=== PATIENT | female | born 1965 | race American Indian/Alaskan Native ===

== ENCOUNTER 2016-12-23 11:42 | Inpatient (IN) | payer MEDICARE, MEDICAID ==
[2016-12-23 11:55] VITALS: BMI 27.1
[2016-12-23] MEDS ORDERED: Sodium Chloride 0.9% 1,000 ML IV STA (12:45)
--- NOTE | 2016-12-23 12:53 | ED PDOC ---
HPI: General Adult Time Seen by Provider: 12/23/16 12:25 Chief Complaint (Nursing): Abnormal Skin Integrity Chief Complaint (Provider): Abscess History Per: Patient History/Exam Limitations: no limitations Onset/Duration Of Symptoms: Days (x 1 week) Current Symptoms Are (Timing): Still Present Additional Complaint(s): Raven Galloway is a 51-year-old female with a past medical history of HIV and diabetes, who presents to the emergency department with complaints of an abscess with associated pain, headache, and fatigue, onset 1 week ago. The abscess originally was located on the right buttock region, and began spreading. Patient admits to scratching the area, which is now leaking. She visited her doctor in [place] yesterday, and states that a CT scan was recommended. Patient took Alleve yesterday for pain, with minimal relief, and denies taking medications for pain relief today. Patient denies fever, chills, nausea, vomiting. LMP was 8 months ago. Plastic Surgeon: Dr. Baljinder Daniels MD Customer Success Associate: Dr. Moira Davis MD Past Medical History Reviewed: Historical Data, Nursing Documentation, Vital Signs Vital Signs: Last Vital Signs Temp 98.7 F 12/24/16 13:26 Pulse 84 12/24/16 13:26 Resp 20 12/24/16 13:26 BP 115/73 12/24/16 13:26 Pulse Ox 98 12/24/16 13:26 - Medical History PMH: Diabetes, HIV - Family History Family History: States: Unknown Family Hx - Home Medications Home Medications: Ambulatory Orders Medication Instructions Recorded Atorvastatin [Lipitor] 20 mg PO HS 12/23/16 Cholecalciferol (Vitamin D3) 2,000 unit PO DAILY 12/23/16 [Vitamin D3] DULoxetine [Cymbalta] 60 mg PO DAILY 12/23/16 Emtricita/rilpivir/tenofovir 1 tab PO HS 12/23/16 [Complera 200 mg-25 mg-300 mg] Escitalopram [Lexapro] 20 mg PO DAILY 12/23/16 Famotidine [Pepcid] 40 mg PO DAILY 12/23/16 Ferrous Sulfate [Feosol] 325 mg PO DAILY 12/23/16 Fluconazole [Diflucan] 150 mg PO DAILY 12/23/16 Insulin Glargine, Recombina 10 unit SC HS 12/23/16 [Lantus] MetFORMIN [glucoPHAGE] 1,000 mg PO BID 12/23/16 Mv,Min10/Folic Acid/D3/Ala/Lut 1 tab PO DAILY 12/23/16 [Strovite One Caplet] oxyCODONE [oxyCODONE Immediate 30 mg PO Q6H PRN 12/23/16 Release Tab] valACYclovir [Valtrex] 1 gm PO DAILY 12/23/16 - Allergies Allergies/Adverse Reactions: Allergies Allergy/AdvReac Type Severity Reaction Status Date / Time No Known Allergies Allergy Verified 12/23/16 11:58 Review of Systems ROS Statement: Except As Marked, All Systems Reviewed And Found Negative Constitutional: Positive for: Other (Fatigue). Negative for: Fever, Chills Gastrointestinal: Negative for: Nausea, Vomiting Skin: Positive for: Other (Abscess in buttocks region) Neurological: Positive for: Headache Physical Exam - Reviewed Nursing Documentation Reviewed: Yes Vital Signs Reviewed: Yes - Physical Exam Appears: Positive for: Non-toxic, No Acute Distress Head Exam: Positive for: ATRAUMATIC, NORMAL INSPECTION, NORMOCEPHALIC Skin: Positive for: Normal Color, Warm, Dry Eye Exam: Positive for: EOMI, Normal appearance, PERRL Neck: Positive for: Normal, Painless ROM, Supple Extremity: Positive for: Normal ROM, Other (Right gluteal abscess) Neurologic/Psych: Positive for: Alert, Oriented - Laboratory Results Result Diagrams: 12/24/16 04:20 12/24/16 04:20 - ECG O2 Sat by Pulse Oximetry: 98 (RA) Pulse Ox Interpretation: Normal Medical Decision Making Medical Decision Making: Time: 12:45 Initial Impression: Right gluteal abscess Initial Plan: * EKG * CMP * CBC * Partial thromboplastin time * Prothrombin time * Blood culture * AccuCheck * Toradol 15 mg IV * NS IV 1000 mL at 250 mL/hr * CT Pelvis IV contrast * Reevaluation Time: 16:11 * CT Pelvis IV contrast FINDINGS: There is a right gluteal fluid collection, likely abscess. This resides entirely within the subcutaneous fat of the gluteal region. There is no intramuscular extension or extension towards the anal rectal complex. This collection measures 3.6 x 10.6 x 10.5 cm. No other mass or fluid collection is identified. There is extensive cutaneous thickening of the gluteal region bilaterally, right greater than left. This is suspicious for cellulitis. Please correlate clinically. Numerous calcified injection granulomata are seen bilaterally within the subcutaneous fat of the gluteal region. The uterus is significant for multiple calcified degenerated fibroids. There are no adnexal masses. The urinary bladder is suboptimally distended but grossly unremarkable. There are no abnormal bowel loops identified. A normal appendix is identified. There is no pelvic lymphadenopathy. There is mild bilateral inguinal lymphadenopathy, nonspecific. Incidentally noted is what is likely a subchondral cyst of the superior left acetabulum. IMPRESSION: Right gluteal fluid collection, likely abscess, up to 10.6 cm in greatest dimension. Suspected bilateral gluteal cellulitis. Numerous calcified gluteal injection granulomata bilaterally. Additional minor findings as above. Time: 16:45 --Consulted with patients plastic surgeon, Dr. Baljinder Daniels, who recommends that patient see Interventional Radiology to drain the abscess Time: 17:00 * Vancomycin 1 gm IV * Zosyn 3.375 gm IV Time: 17:59 --Admit to hospital to Med/Surg for buttock cellulitis and abscess. Discussed with Dr. Grant. Dr. Daniels aware and was in ER to evaluate patient. Scribe Attestation: Documented by Leia Perez, acting as a scribe for Romi Christianson PA-C Provider Scribe Attestation: All medical record entries made by the Scribe were at my direction and personally dictated by me. I have reviewed the chart and agree that the record accurately reflects my personal performance of the history, physical exam, medical decision making, and the department course for this patient. I have also personally directed, reviewed, and agree with the discharge instructions and disposition. Disposition - Clinical Impression Clinical Impression: Abscess or cellulitis of gluteal region - Patient ED Disposition Is Patient to be Admitted: Yes - Disposition Disposition: Routine/Home Disposition Time: 17:59 Condition: FAIR - Pt Status Changed To: Hospital Disposition Of: Inpatient - Admit Certification Admit to Inpatient:: After my assessment, the patient will require hospitalization for at least two midnights. This is because of the severity of symptoms shown, intensity of services needed, and/or the medical risk in this patient being treated as an outpatient. - POA Present On Arrival: None
[2016-12-23 13:59] LABS: BASO % 0.5 % (0.0-2.0); EOS % 0.5 % (0.0-4.0); HEMOGLOBIN 12.7 g/dL (12.0-16.0); LYMPH # 2.9 K/uL (1.0-4.3); LYMPH % 33.8 % (20.0-40.0); MEAN CELL VOLUME 90.4 fl (81.0-99.0); MEAN CORPUSCULAR HEMOGLOBIN 28.7 pg (27.0-31.0); MEAN CORPUSCULAR HGB CONC 31.8 g/dL (33.0-37.0); MEAN PLATELET VOLUME 9.5 fl (7.2-11.7); MONO # 0.5 K/uL (0.0-0.8); MONO % 6.3 % (0.0-10.0); NEUT # 5.1 K/uL (1.8-7.0); NEUT % 58.9 % (50.0-75.0); RBC 4.4 Mil/uL (3.80-5.20); RED CELL DISTRIBUTION WIDTH 14.7 % (11.5-14.5); WHITE BLOOD COUNT 8.6 K/uL (4.8-10.8)
[2016-12-23 14:14] LABS: INR 1.1 (0.9-1.2); PARTIAL THROMBOPLASTIN TIME 28.7 Seconds (25.6-37.1); PROTHROMBIN TIME 12.5 Seconds (9.8-13.1)
[2016-12-23 14:25] LABS: BASO % 0.3 % (0.0-2.0); EOS # 0.1 K/uL (0.0-0.7); EOS % 0.8 % (0.0-4.0); LYMPH # 2.9 K/uL (1.0-4.3); LYMPH % 33.6 % (20.0-40.0); MEAN CORPUSCULAR HEMOGLOBIN 28.8 pg (27.0-31.0); MEAN PLATELET VOLUME 8.6 fl (7.2-11.7); MONO # 0.5 K/uL (0.0-0.8); MONO % 5.8 % (0.0-10.0); NEUT # 5.2 K/uL (1.8-7.0); NEUT % 59.5 % (50.0-75.0); RBC 4.17 Mil/uL (3.80-5.20); RED CELL DISTRIBUTION WIDTH 14.4 % (11.5-14.5); WHITE BLOOD COUNT 8.7 K/uL (4.8-10.8)
[2016-12-23 14:38] LABS: INR 1.1 (0.9-1.2); PARTIAL THROMBOPLASTIN TIME 27.3 Seconds (25.6-37.1); PROTHROMBIN TIME 12.7 Seconds (9.8-13.1)
[2016-12-23 14:39] LABS: ALB/GLOB RATIO 1.1 (1.0-2.1); ALBUMIN 3.6 g/dL (3.5-5.0); ALT/SGPT 44 U/L (9-52); AST/SGOT 38 U/L (14-36); BLOOD UREA NITROGEN 13 mg/dl (7-17); CALCIUM 8.8 mg/dL (8.4-10.2); GFR AFRICAN-AMERICAN > 60; GFR NON-AFRICAN AMERICAN > 60
[2016-12-23] MEDS ORDERED: Iohexol 300 100 ML IJ ONE (14:45)
[2016-12-23] MEDS ORDERED: Sodium Chloride 0.9% 50 ML IV ONE (14:46)
--- NOTE | 2016-12-23 15:33 | CARD ---
APPROVED REPORT EKG Measurement Heart [id number] <Conclusion> Normal sinus rhythm Normal ECG
--- NOTE | 2016-12-23 16:13 | CT ---
PROCEDURE: CT pelvis HISTORY: right gluteal abscess COMPARISON: Not available TECHNIQUE: 2.5 mm contiguous axial sections were acquired through the pelvis. Sagittal and coronal images were reformatted from the axial scan. Contrast administered: 95 mL Omnipaque 300 Total exam DLP: 615.94 mGy-cm FINDINGS: There is a right gluteal fluid collection, likely abscess. This resides entirely within the subcutaneous fat of the gluteal region. There is no intramuscular extension or extension towards the anal rectal complex. This collection measures 3.6 x 10.6 x 10.5 cm. No other mass or fluid collection is identified. There is extensive cutaneous thickening of the gluteal region bilaterally, right greater than left. This is suspicious for cellulitis. Please correlate clinically. Numerous calcified injection granulomata are seen bilaterally within the subcutaneous fat of the gluteal region. The uterus is significant for multiple calcified degenerated fibroids. There are no adnexal masses. The urinary bladder is suboptimally distended but grossly unremarkable. There are no abnormal bowel loops identified. A normal appendix is identified. There is no pelvic lymphadenopathy. There is mild bilateral inguinal lymphadenopathy, nonspecific. Incidentally noted is what is likely a subchondral cyst of the superior left acetabulum. IMPRESSION: Right gluteal fluid collection, likely abscess, up to 10.6 cm in greatest dimension. Suspected bilateral gluteal cellulitis. Numerous calcified gluteal injection granulomata bilaterally. Additional minor findings as above.
[2016-12-23] MEDS ORDERED: Piperacillin/Tazobact 3.375 GM in Sodium Chloride 0.9% 100 ML IV ONE (16:52)
--- NOTE | 2016-12-23 17:08 | CP.PCM.HP ---
History of Present Illness - History of Present Illness History of Present Illness: 51-year-old female with past medical history of HIV, diabetes,dyslipidemia, depression , chronic pain,history of buttock silicon implant many years ago and removal with multiple complications and infections , not compliant ,presented to the emergency department with recurrent right buttock abscess,associated with pain, headache, and fatigue,for 1 week . The abscess originally was located on the right buttock region, and began spreading. Patient admits to scratching the area, which is now leaking. She visited her doctor in [place] yesterday, and states that a CT scan was recommended. Patient denies fever, chills, nausea, vomiting. LMP was 8 months ago. She gives history of abscess to lateral thigh with I& D and pig tail placement [address] Right gluteal fluid collection, likely abscess, up to 10.6 cm in greatest dimension. Suspected bilateral gluteal cellulitis. Numerous calcified gluteal injection granulomata bilaterally. Additional minor findings as above. Allergies : NKDA PMH ; HIV, DM , history buttock silicon implant with removal and abscess Medications ; see med rec Surgery ; 2 ectopic surgery, right buttock silicon removal , multiple I& D for abscess family history ; Mother had DM , COPD , heart condition Social history ; Lives in [place] with daughter and grandkid, smokes , denies ETOH and drug abuse, ROS ; 4 point review of system negative except above Present on Admission - Present on Admission Any Indicators Present on Admission: No Review of Systems - Review of Systems All systems: reviewed and no additional remarkable complaints except Past Patient History - Tetanus Immunizations Tetanus Immunization: Unknown - Past Medical History & Family History Past Medical History?: Yes Past Family History: Reviewed and not pertinent - Past Social History Smoking Status: Light Smoker < 10 Cigarettes Daily Chewing Tobacco Use: No Cigar Use: No Alcohol: None Drugs: Denies Home Situation {Lives}: With Family Domestic Violence: Negative - CARDIAC Hx Cardiac Disorders: No - PULMONARY Hx Respiratory Disorders: No - NEUROLOGICAL Hx Neurological Disorder: No - HEENT Hx HEENT Problems: No - RENAL Hx Chronic Kidney Disease: No - ENDOCRINE/METABOLIC Hx Endocrine Disorders: Yes Hx Diabetes Mellitus Type 1: Yes - HEMATOLOGICAL/ONCOLOGICAL Hx Blood Disorders: No Hx Human Immunodeficiency Virus (HIV): Yes - PSYCHIATRIC Hx Substance Use: No - SURGICAL HISTORY Hx Surgeries: Yes Meds Allergies/Adverse Reactions: Allergies Allergy/AdvReac Type Severity Reaction Status Date / Time No Known Allergies Allergy Verified 12/23/16 11:58 Physical Exam - Constitutional Appears: Non-toxic - Head Exam Head Exam: ATRAUMATIC, NORMAL INSPECTION, NORMOCEPHALIC - Eye Exam Eye Exam: EOMI, Normal appearance, PERRL Pupil Exam: NORMAL ACCOMODATION - ENT Exam ENT Exam: Mucous Membranes Moist, Normal Exam, Normal Oropharynx - Neck Exam Neck exam: Positive for: Full Rom, Normal Inspection - Respiratory Exam Respiratory Exam: Clear to Auscultation Bilateral, NORMAL BREATHING PATTERN. absent: Rales, Rhonchi, Wheezes - Cardiovascular Exam Cardiovascular Exam: REGULAR RHYTHM, RRR, +S1, +S2. absent: JVD - GI/Abdominal Exam GI & Abdominal Exam: Normal Bowel Sounds, Soft. absent: Distended, Guarding, Rebound, Tenderness - Rectal Exam Rectal Exam: Deferred - Extremities Exam Extremities exam: Positive for: normal capillary refill, normal inspection, pedal pulses present. Negative for: pedal edema Additional comments: right gluteal area abscess midline gluteal fold small opening with no purulence or fluctuation - Back Exam Back exam: NORMAL INSPECTION - Neurological Exam Neurological exam: Alert, CN II-XII Intact, Oriented x3 - Psychiatric Exam Psychiatric exam: Normal Affect, Normal Mood - Skin Skin Exam: Dry, Intact, Normal Color, Warm Results - Vital Signs Recent Vital Signs: Last Vital Signs Temp 98 F 12/23/16 11:58 Pulse 100 H 12/23/16 11:58 Resp 20 12/23/16 11:58 BP 130/68 12/23/16 11:58 Pulse Ox 98 12/23/16 15:10 - Labs Result Diagrams: 12/23/16 14:15 12/23/16 14:15 Labs: Laboratory Results - last 24 hr 12/23/16 12/23/16 12/23/16 13:09 13:09 13:21 WBC 8.6 RBC 4.40 Hgb 12.7 Hct 39.8 MCV 90.4 MCH 28.7 MCHC 31.8 L RDW 14.7 H Plt Count 281 MPV 9.5 Neut % (Auto) 58.9 Lymph % (Auto) 33.8 Treasure % (Auto) 6.3 Eos % (Auto) 0.5 Baso % (Auto) 0.5 Neut # 5.1 Lymph # 2.9 Treasure # 0.5 Eos # 0.0 Baso # 0.0 PT 12.5 INR 1.1 APTT 28.7 Sodium Potassium Chloride Carbon Dioxide Anion Gap BUN Creatinine Est GFR ( Amer) Est GFR (Non-Af Amer) POC Glucose (mg/dL) 138 H Random Glucose Calcium Total Bilirubin AST ALT Alkaline Phosphatase Total Protein Albumin Globulin Albumin/Globulin Ratio 12/23/16 12/23/16 12/23/16 14:15 14:15 14:15 WBC 8.7 RBC 4.17 Hgb 12.0 Hct 37.5 MCV 90.0 MCH 28.8 MCHC 32.0 L RDW 14.4 Plt Count 257 MPV 8.6 Neut % (Auto) 59.5 Lymph % (Auto) 33.6 Treasure % (Auto) 5.8 Eos % (Auto) 0.8 Baso % (Auto) 0.3 Neut # 5.2 Lymph # 2.9 Treasure # 0.5 Eos # 0.1 Baso # 0.0 PT 12.7 INR 1.1 APTT 27.3 Sodium 137 Potassium 3.8 Chloride 106 Carbon Dioxide 23 Anion Gap 12 BUN 13 Creatinine 0.5 L Est GFR ( Amer) > 60 Est GFR (Non-Af Amer) > 60 POC Glucose (mg/dL) Random Glucose 134 H Calcium 8.8 Total Bilirubin 0.3 AST 38 H ALT 44 Alkaline Phosphatase 71 Total Protein 6.9 Albumin 3.6 Globulin 3.3 Albumin/Globulin Ratio 1.1 Assessment & Plan (1) Abscess or cellulitis of gluteal region Status: Acute (2) HIV (human immunodeficiency virus infection) Status: Chronic (3) Diabetes mellitus Status: Chronic - Assessment and Plan (Free Text) Assessment: 51-year-old female with past medical history of HIV, diabetes,Depression, dyslipidemia, chronic pain ,history of buttock silicon implant many years ago and removal with multiple complications and infections , not compliant , presented to the emergency department with recurrent right buttock abscess, associated with pain, headache, and fatigue,for 1 week . The abscess originally was located on the right buttock region, and began spreading. Patient admits to scratching the area, which is now leaking. She visited her doctor in [place] yesterday, and states that a CT scan was recommended. Patient denies fever, chills, nausea, vomiting. LMP was 8 months ago. She gives history of abscess to lateral thigh with I& D and pig tail placement [address] Right gluteal fluid collection, likely abscess, up to 10.6 cm in greatest dimension. Suspected bilateral gluteal cellulitis. Numerous calcified gluteal injection granulomata bilaterally. 1. Gluteal abscess with cellulitis Admit patient to med-surg Blood cx , wound cx Start Vanco and Zosyn IV Discussed with her plastic surgeon Dr. Daniels . He recommends IR drainage with pig tail placement ID consult 2. HIV resume her HIV meds once verified with her pharmacy 3. DM Diabetic diet, accuchecks, insulin coverage Hold lantus since is not formulary. Start Levemir Continue Metformin 4. Dyslipidemia on statin 5. Depression on cymbalta and lexapro 6. Chronic Pain disorder ? on oxycodone 30 mg po Q6 PRN 7.DVT prophylaxis SCd lovenox
[2016-12-23] MEDS ORDERED: Piperacillin/Tazobact 3.375 gm Inj IVPB ONE (18:01)
[2016-12-23] MEDS ORDERED: Vancomycin 1 g Inj ONE (18:01)
[2016-12-23] MEDS ORDERED: oxyCODONE 10 mg Immediate Release Tab PO PRN (19:57)
[2016-12-23] MEDS: Sodium Chloride 0.9% 1,000 ML IV SCH ×2 (20:38)
[2016-12-23] MEDS: Insulin Lispro (humaLOG) 100 Units/ml Inj SC SCH (21:49)
[2016-12-23] MEDS: Insulin Detemir 100 Units/ml Inj SC SCH (21:52)
[2016-12-23] MEDS ORDERED: Patient's Own Med (Emtricita/Rilpivir/Tenofovir 1 TAB) PO SCH (22:00)
[2016-12-23] MEDS: oxyCODONE 5 mg Immediate Release Tab PO PRN (23:28)
[2016-12-24 05:25] LABS: BASO % 0.4 % (0.0-2.0); EOS # 0.1 K/uL (0.0-0.7); HEMOGLOBIN 11.9 g/dL (12.0-16.0); LYMPH # 2.6 K/uL (1.0-4.3); LYMPH % 37.9 % (20.0-40.0); MEAN CELL VOLUME 89.1 fl (81.0-99.0); MEAN CORPUSCULAR HGB CONC 32.5 g/dL (33.0-37.0); MEAN PLATELET VOLUME 8.3 fl (7.2-11.7); MONO # 0.4 K/uL (0.0-0.8); MONO % 6.4 % (0.0-10.0); NEUT # 3.7 K/uL (1.8-7.0); NEUT % 54.3 % (50.0-75.0); RBC 4.11 Mil/uL (3.80-5.20); RED CELL DISTRIBUTION WIDTH 14.2 % (11.5-14.5); WHITE BLOOD COUNT 6.8 K/uL (4.8-10.8)
[2016-12-24 05:26] LABS: BLOOD UREA NITROGEN 8 mg/dl (7-17); CALCIUM 8.8 mg/dL (8.4-10.2); GFR AFRICAN-AMERICAN > 60; GFR NON-AFRICAN AMERICAN > 60
[2016-12-24] MEDS: Sodium Chloride 0.9% 1,000 ML IV SCH ×2 (06:18→13:05)
--- NOTE | 2016-12-24 08:23 | PQF HIV ---
This form is a permanent part of the medical record 12/24/16 Dr. Grant, Would you please clarify the status of the patient's HIV if known. Clarification of your documentation is requested to better reflect the severity of illness and intensity of treatment of your patient. Indicators present [x] Documented diagnosis of HIV [] CD4 count: [] [] Other: [] Location in the medical record that reflects the above clinical findings: [] Other Treatment Provided: [] PHYSICIAN'S RESPONSE If possible, based on your medical judgment, please clarify the clinical classification for this patient. [] Asymptomatic HIV Status: without any history of (or current) AIDS Defining Illnesses of HIV-Related Illness [] AIDS: Meets the current CDC Definition of AIDS HIV-Infected persons who HAVE OR HAVE HAD less than 200 CD4+ T-lymphocytes/uL or CD4+ T-lymphocyte percentage of total lymphocytes of less than 14, AND/OR an AIDS-Defining or HIV-Related Disease. See reverse side for examples. Per CDC publication Vol 60 RR-17 : Relating to the classification HIV Infection , once a patient is diagnosed with AIDS the diagnosis still stands even if, after treatment, the CD4+ T cell count rises above 200 per uL of blood or other AIDS-defining illnesses are cured. [x] If unable to determine, please check the box, sign and date. Patient refuses to give details on her condition at present In responding to this query, please exercise your independent professional judgment. The fact that a question is asked does not imply that any particular answer is desired or expected. Thank you for your clarification on this documentation. If you have any questions please call:[phone] * Thank you, Emelyn Villanueva RN [facility] The following are AIDS-Defining Illnesses or HIV-Related Diseases: Candidiasis of bronchi, trachea, or lungs Candidiasis, esophageal Cervical cancer, invasive * Coccidioidomycosis, disseminated or extrapulmonary Cryptococcosis, extrapulmonary Cryptosporidiosis, chronic intestinal (greater than 1 month's duration) Cytomegalovirus disease (other than liver, spleen, or nodes) Cytomegalovirus retinitis (with loss of vision) Encephalopathy, HIV-related Herpes simplex: chronic ulcer(s) (greater than 1 month's duration); or bronchitis, pneumonitis, or esophagitis Histoplasmosis, disseminated or extrapulmonary Isosporiasis, chronic intestinal (greater than 1 month's duration) Kaposi's sarcoma Lymphoma, Burkitt's (or equivalent term) Lymphoma, immunoblastic (or equivalent term) Lymphoma, primary, of brain Mycobacterium avium complex or M. kansasii, disseminated or extrapulmonary Mycobacterium tuberculosis, any site (pulmonary * or extrapulmonary) Mycobacterium, other species or unidentified species, disseminated or extrapulmonary Pneumocystis carinii pneumonia Pneumonia, recurrent * Progressive multifocal leukoencephalopathy Salmonella septicemia, recurrent Toxoplasmosis of brain Wasting syndrome due to HIV MTDD
--- NOTE | 2016-12-24 08:39 | PQF GENQUE ---
This form is a permanent part of the medical record 12/24/16 Dr. Grant, Please clarify the relationship, if any, between the history of buttock silicon implant many years ago with removal and multiple complications and infections and the recurrent right buttock abscess. Are the conditions: Due to or associated with each other Unrelated to each other Clinically unable to determine Unknown Treated with dual IVAB. Clarification of your documentation is requested to better reflect the severity of illness and intensity of treatment of your patient. Indicators present [] Specify: [] [] Specify: [] [] Specify: [] [] Specify: [] Location in the medical record that reflects the above clinical findings: [] Treatment Provided: [] PHYSICIAN'S RESPONSE Are the conditions: [x] Due to or associated with each other [] Unrelated to each other [] Clinically unable to determine [] Unknown [] Other (please clarify) Based on your medical judgment of the clinical indicators outlined above please clarify the following: [] Practitioner response [] If unable to determine, please check the box, sign and date. Present On Admission (POA) Indicator: [x] Present at the time of admission [] Not present at the time of admission [] Clinically Undetermined In responding to this query, please exercise your independent professional judgment. The fact that a question is asked does not imply that any particular answer is desired or expected. Thank you for your clarification on this documentation. If you have any questions please call:ext [phone] * Thank you, Emelyn Villanueva RN [facility]
[2016-12-24] MEDS ORDERED: Enoxaparin 40 mg Syringe SC SCH (09:00)
[2016-12-24] MEDS: Insulin Lispro (humaLOG) 100 Units/ml Inj SC SCH ×4 (09:02→21:51)
[2016-12-24] MEDS ORDERED: Lidocaine 1% Inj (20ml) ONE (11:33)
[2016-12-24] MEDS ORDERED: Sodium Chloride 0.9% 50 ML IV ONE (11:38)
[2016-12-24] MEDS ORDERED: Propofol 10 mg/ml Inj (20 ML) ONE (11:41)
[2016-12-24] MEDS ORDERED: Midazolam 2 MG/2 ML VIAL ONE (11:42)
--- NOTE | 2016-12-24 12:14 | PCM.SURG1 ---
Surgeon's Initial Post Op Note - Surgeon's Notes Surgeon: Wilber Garay MD Field Captain: NONE Type of Anesthesia: IV Sedation Pre-Operative Diagnosis: Right gluteal abscess Operative Findings: Complex collection right buttock. Post-Operative Diagnosis: Right gluteal abscess Operation Performed: US guided right gluteal abscess drainage. Placement of a 8.5 fr pigtail drainage catheter. Specimen/Specimens Removed: 50 cc of purulent drainage. Estimated Blood Loss: EBL {In ML}: 0 Blood Products Given: N/A Drains Used: No Drains Post-Op Condition: Fair Date of Surgery/Procedure: 12/24/16 Time of Surgery/Procedure: 12:00
[2016-12-24] MEDS: Fluconazole 150 MG TAB PO SCH (13:39)
[2016-12-24] MEDS: Pantoprazole 40 mg EC Tab PO SCH (13:41)
[2016-12-24] MEDS: oxyCODONE 5 mg Immediate Release Tab PO PRN (13:49)
--- NOTE | 2016-12-24 13:55 | CP.PCM.PN ---
Subjective - Date & Time of Evaluation Date of Evaluation: 12/24/16 Time of Evaluation: 13:52 - Subjective Subjective: Patient is seen and examined bedside this AM. She was seen walking around the bed walking. Pt continues to endorse pain in her R buttock, but pain is improved after medication. Denies chest pain, dyspnea, palpitations, n/v/d/c. Pt is scheduled for I&D today. Objective - Vital Signs/Intake and Output Vital Signs (last 24 hours): Temp Pulse Resp BP Pulse Ox 98.7 F 84 20 115/73 98 12/24/16 13:26 12/24/16 13:26 12/24/16 13:26 12/24/16 13:26 12/24/16 13:52 Intake and Output: 12/24/16 12/24/16 06:59 18:59 Intake Total 100 Output Total 50 Balance 50 - Medications Medications: Current Medications Acetaminophen (Tylenol 325mg Tab) 650 mg PO Q6 PRN PRN Reason: Pain, Mild (1-3) Last Admin: 12/24/16 08:24 Dose: 650 mg Acetaminophen (Tylenol 325mg Tab) 650 mg PO Q6 PRN PRN Reason: Fever >100.4 F Atorvastatin Calcium (Lipitor) 20 mg PO HS [facility] Last Admin: 12/23/16 21:52 Dose: 20 mg Cholecalciferol (Vitamin D) 2,000 iu PO DAILY [facility] Last Admin: 12/24/16 13:42 Dose: 2,000 iu Docusate Sodium (Colace) 100 mg PO BID [facility] Last Admin: 12/24/16 09:01 Dose: Not Given Duloxetine HCl (Cymbalta) 60 mg PO DAILY [facility] Last Admin: 12/24/16 13:40 Dose: 60 mg Enoxaparin Sodium (Lovenox) 40 mg SC DAILY [facility] PRN Reason: Protocol Escitalopram Oxalate (Lexapro) 20 mg PO DAILY [facility] Last Admin: 12/24/16 13:41 Dose: 20 mg Famotidine (Pepcid) 40 mg PO DAILY [facility] Last Admin: 12/24/16 13:41 Dose: 40 mg Ferrous Sulfate (Feosol) 325 mg PO DAILY [facility] Last Admin: 12/24/16 13:40 Dose: 325 mg Fluconazole (Diflucan) 150 mg PO DAILY [facility] Last Admin: 12/24/16 13:39 Dose: 150 mg Home Med (Cholecalciferol (Vitamin D3) [Vitamin D3]) 2,000 unit PO DAILY [facility] Home Med (Emtricita/Rilpivir/Tenofovir) 1 tab PO [facility] Home Med (Famotidine [Pepcid]) 40 mg PO DAILY [facility] Home Med (Valacyclovir [Valtrex]) 1 gm PO DAILY [facility] Vancomycin HCl 1 gm/ Sodium (Chloride) 250 mls @ 166.667 mls/hr IVPB DAILY [facility] Last Admin: 12/24/16 11:00 Dose: 166.667 mls/hr Sodium Chloride (Sodium Chloride 0.9%) 1,000 mls @ 100 mls/hr IV .Q10H [facility] Last Admin: 12/24/16 13:05 Dose: 100 mls Insulin Detemir (Levemir) 10 units SC [facility] Last Admin: 12/23/16 21:52 Dose: 10 units Insulin Human Lispro (Humalog) 0 units SC [facility] PRN Reason: Protocol Last Admin: 12/24/16 13:40 Dose: Not Given Ketorolac Tromethamine (Toradol) 30 mg IVP Q6 PRN PRN Reason: Pain, severe (8-10) Metformin HCl (Glucophage) 1,000 mg PO BID [facility] Last Admin: 12/24/16 09:02 Dose: Not Given Ondansetron HCl (Zofran Inj) 4 mg IVP Q6 PRN PRN Reason: Nausea/Vomiting Oxycodone HCl (Oxycodone Immediate Release Tab) 30 mg PO Q6 PRN PRN Reason: Pain, severe (8-10) Stop: 12/26/16 19:58 Last Admin: 12/24/16 13:49 Dose: 30 mg Pantoprazole Sodium (Protonix Ec Tab) 40 mg PO DAILY [facility] Last Admin: 12/24/16 13:41 Dose: 40 mg - Labs Labs: 12/24/16 04:20 12/24/16 04:20 PT 12.7 Seconds (9.8-13.1) 12/23/16 14:15 INR 1.1 (0.9-1.2) 12/23/16 14:15 APTT 27.3 Seconds (25.6-37.1) 12/23/16 14:15 - Constitutional Appears: Well - Head Exam Head Exam: ATRAUMATIC, NORMOCEPHALIC - Eye Exam Eye Exam: EOMI, Normal appearance - ENT Exam ENT Exam: Mucous Membranes Moist - Neck Exam Neck Exam: Full ROM - Respiratory Exam Respiratory Exam: Clear to Ausculation Bilateral. absent: Wheezes - Cardiovascular Exam Cardiovascular Exam: REGULAR RHYTHM, +S1, +S2 - GI/Abdominal Exam GI & Abdominal Exam: Soft, Normal Bowel Sounds. absent: Guarding, Tenderness - Extremities Exam Extremities Exam: Full ROM, Normal Capillary Refill, Normal Inspection. absent : Pedal Edema - Back Exam Back Exam: NORMAL INSPECTION. absent: tenderness Additional comments: 10cm fluctuation mass in the R lower buttock. No redness noted. Midline gluteal opening, no discharge noted - Neurological Exam Neurological Exam: Alert, Awake, Normal Gait - Psychiatric Exam Psychiatric exam: Normal Affect, Normal Mood - Skin Skin Exam: Dry, Intact, Normal Color, Warm Assessment and Plan - Assessment and Plan (Free Text) Assessment: 51-year-old female with past medical history of HIV, diabetes,Depression, dyslipidemia, chronic pain, with history of buttock silicon implant many years ago and removal with multiple complications and infections presented to the emergency department with recurrent right buttock abscess,associated with pain , headache, and fatigue,for 1 week. The abscess originally was located on the right buttock region, and began spreading. She visited her doctor in [place] yesterday, and states that a CT scan was recommended. Pt has hx of abscess to lateral thigh with I& D and pig tail placement 2 months ago. VS stable, remains afebrile. CT shows gluteal fluid collection likely abscess, up to 10.6 cm in greatest dimension. Suspected bilateral gluteal cellulites. S/p US guided right gluteal abscess drainage. Placement of a 8.5 fr pigtail drainage catheter. 50cc purulent drainage. Blood culture no growth 24 hrs. 1. Gluteal abscess with cellulitis - s/p US guided drainage with 50cc of purulent drainage. - blood culture no growth 24hrs - follow up wound culture - continue Vanc and Zosyn - monitor drainage - follow up ID consult - follow up CBC 2. HIV - continue pts home medications 3. DM II - diabetic diet - accuchecks - continue humalog, levemir and metformin 4. Dyslipedemia - continue atorvastatin 20mg 5. Depression - continue cymbalta, and Lexapro 6. chronic pain - continue home medications 7. DVT prophylaxis
[2016-12-24] MEDS: Piperacillin/Tazobact 3.375 GM in Sodium Chloride 0.9% 100 ML IVPB SCH ×2 (17:17→22:05)
--- NOTE | 2016-12-24 17:21 | CP.PCM.CON ---
History of Present Illness - History of Present Illness History of Present Illness: Infectious Disease Consult Note- asked to see this patient at the request of for right buttock abscess. HPI- Patient is a 51 year old female with pmh of HIV , DM II, dyslipidemia, h/o b/l buttock silicon implants and removal with multiple infections and complications who is admitted with c/o right buttock abscess and pain . pt. was found to have large gluteal abscess on the Ct report and is s/p I and D of the abscess with pigtail placement to drain the rest of the abscess and i' masked to evaluate and help with abx management. pt gives history of abscess to lateral thigh with I& D and pig tail placement 2 months ago . Pt. states she feels better post I and D. Review of Systems - Review of Systems Review of Systems: ROS- denies any fever or chills, denies any PARHAM, denies any cough, denies any sob, denies anyc hest pain, denies any n/v, denies any abd. pain, right buttcok pain and edema s/p I and D and has pigtail in place denies any diarrhra denies any dysurea states had silicon implants in buttocks years ago and has had multiple complications and abscesses in past Past Patient History - Tetanus Immunizations Tetanus Immunization: Unknown - Past Medical History & Family History Past Medical History?: Yes - Past Social History Smoking Status: Light Smoker < 10 Cigarettes Daily - CARDIAC Hx Cardiac Disorders: No - PULMONARY Hx Respiratory Disorders: No - NEUROLOGICAL Hx Neurological Disorder: No - HEENT Hx HEENT Problems: No - RENAL Hx Chronic Kidney Disease: No - ENDOCRINE/METABOLIC Hx Endocrine Disorders: Yes Hx Diabetes Mellitus Type 1: Yes - HEMATOLOGICAL/ONCOLOGICAL Hx Human Immunodeficiency Virus (HIV): Yes - INTEGUMENTARY Hx Dermatological Problems: No - MUSCULOSKELETAL/RHEUMATOLOGICAL Hx Musculoskeletal Disorders: Yes Hx Falls: Yes - GASTROINTESTINAL Hx Gastrointestinal Disorders: No - GENITOURINARY/GYNECOLOGICAL Hx Genitourinary Disorders: No - PSYCHIATRIC Hx Psychophysiologic Disorder: No Hx Substance Use: No - SURGICAL HISTORY Hx Surgeries: Yes Other/Comment: Silicon buttock injection - ANESTHESIA Hx Anesthesia: Yes Hx Anesthesia Reactions: No Meds Allergies/Adverse Reactions: Allergies Allergy/AdvReac Type Severity Reaction Status Date / Time No Known Allergies Allergy Verified 12/23/16 11:58 - Medications Medications: Current Medications Acetaminophen (Tylenol 325mg Tab) 650 mg PO Q6 PRN PRN Reason: Pain, Mild (1-3) Last Admin: 12/24/16 08:24 Dose: 650 mg Acetaminophen (Tylenol 325mg Tab) 650 mg PO Q6 PRN PRN Reason: Fever >100.4 F Atorvastatin Calcium (Lipitor) 20 mg PO [facility] Last Admin: 12/23/16 21:52 Dose: 20 mg Cholecalciferol (Vitamin D) 2,000 iu PO DAILY [facility] Last Admin: 12/24/16 13:42 Dose: 2,000 iu Docusate Sodium (Colace) 100 mg PO BID [facility] Last Admin: 12/24/16 17:18 Dose: 100 mg Duloxetine HCl (Cymbalta) 60 mg PO DAILY [facility] Last Admin: 12/24/16 13:40 Dose: 60 mg Enoxaparin Sodium (Lovenox) 40 mg SC DAILY [facility] PRN Reason: Protocol Escitalopram Oxalate (Lexapro) 20 mg PO DAILY [facility] Last Admin: 12/24/16 13:41 Dose: 20 mg Famotidine (Pepcid) 40 mg PO DAILY [facility] Last Admin: 12/24/16 13:41 Dose: 40 mg Ferrous Sulfate (Feosol) 325 mg PO DAILY [facility] Last Admin: 12/24/16 13:40 Dose: 325 mg Fluconazole (Diflucan) 150 mg PO DAILY [facility] Last Admin: 12/24/16 13:39 Dose: 150 mg Home Med (Cholecalciferol (Vitamin D3) [Vitamin D3]) 2,000 unit PO DAILY [facility] Home Med (Emtricita/Rilpivir/Tenofovir) 1 tab PO HS [facility] Home Med (Famotidine [Pepcid]) 40 mg PO DAILY [facility] Home Med (Valacyclovir [Valtrex]) 1 gm PO DAILY [facility] Vancomycin HCl 1 gm/ Sodium (Chloride) 250 mls @ 166.667 mls/hr IVPB DAILY [facility] Last Admin: 12/24/16 11:00 Dose: 166.667 mls/hr Sodium Chloride (Sodium Chloride 0.9%) 1,000 mls @ 100 mls/hr IV .Q10H [facility] Last Admin: 12/24/16 13:05 Dose: 100 mls Piperacillin Sod/Tazobactam (Sod 3.375 gm/ Sodium Chloride) 100 mls @ 100 mls/ hr IVPB Q6 [facility] Last Admin: 12/24/16 17:17 Dose: 100 mls/hr Insulin Detemir (Levemir) 10 units SC HS [facility] Last Admin: 12/23/16 21:52 Dose: 10 units Insulin Human Lispro (Humalog) 0 units SC [facility] PRN Reason: Protocol Last Admin: 12/24/16 17:19 Dose: 2 units Ketorolac Tromethamine (Toradol) 30 mg IVP Q6 PRN PRN Reason: Pain, severe (8-10) Metformin HCl (Glucophage) 1,000 mg PO BID [facility] Last Admin: 12/24/16 17:18 Dose: 1,000 mg Ondansetron HCl (Zofran Inj) 4 mg IVP Q6 PRN PRN Reason: Nausea/Vomiting Oxycodone HCl (Oxycodone Immediate Release Tab) 30 mg PO Q6 PRN PRN Reason: Pain, severe (8-10) Stop: 12/26/16 19:58 Last Admin: 12/24/16 13:49 Dose: 30 mg Pantoprazole Sodium (Protonix Ec Tab) 40 mg PO DAILY [facility] Last Admin: 12/24/16 13:41 Dose: 40 mg Physical Exam - Constitutional Appears: Non-toxic, No Acute Distress - Head Exam Head Exam: ATRAUMATIC - Eye Exam Eye Exam: EOMI, PERRL - ENT Exam ENT Exam: Normal Oropharynx - Neck Exam Neck exam: Positive for: Full Rom - Respiratory Exam Respiratory Exam: Clear to Auscultation Bilateral, NORMAL BREATHING PATTERN - Cardiovascular Exam Cardiovascular Exam: RRR, +S1, +S2 - GI/Abdominal Exam GI & Abdominal Exam: Normal Bowel Sounds, Soft Additional comments: NT, ND - Extremities Exam Extremities exam: Positive for: normal inspection - Neurological Exam Neurological exam: Alert, Oriented x3 - Skin Additional comments: left gluteal region with pig tail catheter in place draining thick fluid, no surrounding erythema, somewhat warm to touch old surgical scars under both gluteal regions, dry/intact Results - Vital Signs Recent Vital Signs: Last Vital Signs Temp 98.3 F 12/24/16 16:04 Pulse 67 12/24/16 16:04 Resp 18 12/24/16 16:04 BP 143/80 12/24/16 16:04 Pulse Ox 99 07/13/17 16:04 - Labs Result Diagrams: 12/24/16 04:20 12/24/16 04:20 Labs: Laboratory Results - last 24 hr 12/23/16 12/24/16 12/24/16 21:20 04:20 04:20 WBC 6.8 RBC 4.11 Hgb 11.9 L Hct 36.6 MCV 89.1 MCH 29.0 MCHC 32.5 L RDW 14.2 Plt Count 262 MPV 8.3 Neut % (Auto) 54.3 Lymph % (Auto) 37.9 [place] % (Auto) 6.4 Eos % (Auto) 1.0 Baso % (Auto) 0.4 Neut # 3.7 Lymph # 2.6 [place] # 0.4 Eos # 0.1 Baso # 0.0 Sodium 141 Potassium 4.0 Chloride 109 H Carbon Dioxide 26 Anion Gap 10 BUN 8 Creatinine 0.5 L Est GFR ( Amer) > 60 Est GFR (Non-Af Amer) > 60 POC Glucose (mg/dL) 239 H Random Glucose 169 H Calcium 8.8 12/24/16 12/24/16 12/24/16 05:36 10:49 15:47 WBC RBC Hgb Hct MCV MCH MCHC RDW Plt Count MPV Neut % (Auto) Lymph % (Auto) [place] % (Auto) Eos % (Auto) Baso % (Auto) Neut # Lymph # [place] # Eos # Baso # Sodium Potassium Chloride Carbon Dioxide Anion Gap BUN Creatinine Est GFR ( Amer) Est GFR (Non-Af Amer) POC Glucose (mg/dL) 168 H 158 H 232 H Random Glucose Calcium Laboratory Results - last 72 hr 12/23/16 12/23/16 12/23/16 13:09 13:09 13:21 WBC 8.6 RBC 4.40 Hgb 12.7 Hct 39.8 MCV 90.4 MCH 28.7 MCHC 31.8 L RDW 14.7 H Plt Count 281 MPV 9.5 Neut % (Auto) 58.9 Lymph % (Auto) 33.8 [place] % (Auto) 6.3 Eos % (Auto) 0.5 Baso % (Auto) 0.5 Neut # 5.1 Lymph # 2.9 [place] # 0.5 Eos # 0.0 Baso # 0.0 PT 12.5 INR 1.1 APTT 28.7 Sodium Potassium Chloride Carbon Dioxide Anion Gap BUN Creatinine Est GFR ( Amer) Est GFR (Non-Af Amer) POC Glucose (mg/dL) 138 H Random Glucose Calcium Total Bilirubin AST ALT Alkaline Phosphatase Total Protein Albumin Globulin Albumin/Globulin Ratio 12/23/16 12/23/16 12/23/16 14:15 14:15 14:15 WBC 8.7 RBC 4.17 Hgb 12.0 Hct 37.5 MCV 90.0 MCH 28.8 MCHC 32.0 L RDW 14.4 Plt Count 257 MPV 8.6 Neut % (Auto) 59.5 Lymph % (Auto) 33.6 [place] % (Auto) 5.8 Eos % (Auto) 0.8 Baso % (Auto) 0.3 Neut # 5.2 Lymph # 2.9 [place] # 0.5 Eos # 0.1 Baso # 0.0 PT 12.7 INR 1.1 APTT 27.3 Sodium 137 Potassium 3.8 Chloride 106 Carbon Dioxide 23 Anion Gap 12 BUN 13 Creatinine 0.5 L Est GFR ( Amer) > 60 Est GFR (Non-Af Amer) > 60 POC Glucose (mg/dL) Random Glucose 134 H Calcium 8.8 Total Bilirubin 0.3 AST 38 H ALT 44 Alkaline Phosphatase 71 Total Protein 6.9 Albumin 3.6 Globulin 3.3 Albumin/Globulin Ratio 1.1 12/23/16 12/24/16 12/24/16 21:20 04:20 04:20 WBC 6.8 RBC 4.11 Hgb 11.9 L Hct 36.6 MCV 89.1 MCH 29.0 MCHC 32.5 L RDW 14.2 Plt Count 262 MPV 8.3 Neut % (Auto) 54.3 Lymph % (Auto) 37.9 [place] % (Auto) 6.4 Eos % (Auto) 1.0 Baso % (Auto) 0.4 Neut # 3.7 Lymph # 2.6 [place] # 0.4 Eos # 0.1 Baso # 0.0 PT INR APTT Sodium 141 Potassium 4.0 Chloride 109 H Carbon Dioxide 26 Anion Gap 10 BUN 8 Creatinine 0.5 L Est GFR ( Amer) > 60 Est GFR (Non-Af Amer) > 60 POC Glucose (mg/dL) 239 H Random Glucose 169 H Calcium 8.8 Total Bilirubin AST ALT Alkaline Phosphatase Total Protein Albumin Globulin Albumin/Globulin Ratio 12/24/16 12/24/16 12/24/16 05:36 10:49 15:47 WBC RBC Hgb Hct MCV MCH MCHC RDW Plt Count MPV Neut % (Auto) Lymph % (Auto) [place] % (Auto) Eos % (Auto) Baso % (Auto) Neut # Lymph # [place] # Eos # Baso # PT INR APTT Sodium Potassium Chloride Carbon Dioxide Anion Gap BUN Creatinine Est GFR ( Amer) Est GFR (Non-Af Amer) POC Glucose (mg/dL) 168 H 158 H 232 H Random Glucose Calcium Total Bilirubin AST ALT Alkaline Phosphatase Total Protein Albumin Globulin Albumin/Globulin Ratio 12/24/16 21:10 WBC RBC Hgb Hct MCV MCH MCHC RDW Plt Count MPV Neut % (Auto) Lymph % (Auto) [place] % (Auto) Eos % (Auto) Baso % (Auto) Neut # Lymph # [place] # Eos # Baso # PT INR APTT Sodium Potassium Chloride Carbon Dioxide Anion Gap BUN Creatinine Est GFR ( Amer) Est GFR (Non-Af Amer) POC Glucose (mg/dL) 224 H Random Glucose Calcium Total Bilirubin AST ALT Alkaline Phosphatase Total Protein Albumin Globulin Albumin/Globulin Ratio Microbiology 12/24/16 13:53 Abscess - Buttock-Right Gram Stain - Final 12/23/16 13:00 Blood-Venous Blood Culture - Preliminary NO GROWTH AFTER 24 HOURS 12/23/16 12:40 Blood-Venous Blood Culture - Preliminary NO GROWTH AFTER 24 HOURS Accession No. : [id number] Patient Name / ID : RANJITH ROJAS / [id number] Exam Date : 12/23/2016 15:34:33 ( Approved ) Study Comment : Sex / Age : F / 51Y Creator : Matthieu Garcia MD Dictator : Matthieu Garcia MD Art Handler : Director [facility] : Matthieu Garcia MD Approver2 : Report Date : 12/23/2016 16:11:01 My Comment : PROCEDURE: CT pelvis HISTORY: right gluteal abscess COMPARISON: Not available TECHNIQUE: 2.5 mm contiguous axial sections were acquired through the pelvis. Sagittal and coronal images were reformatted from the axial scan. Contrast administered: 95 mL Omnipaque 300 Total exam DLP: 615.94 mGy-cm FINDINGS: There is a right gluteal fluid collection, likely abscess. This resides entirely within the subcutaneous fat of the gluteal region. There is no intramuscular extension or extension towards the anal rectal complex. This collection measures 3.6 x 10.6 x 10.5 cm. No other mass or fluid collection is identified. There is extensive cutaneous thickening of the gluteal region bilaterally, right greater than left. This is suspicious for cellulitis. Please correlate clinically. Numerous calcified injection granulomata are seen bilaterally within the subcutaneous fat of the gluteal region. The uterus is significant for multiple calcified degenerated fibroids. There are no adnexal masses. The urinary bladder is suboptimally distended but grossly unremarkable. There are no abnormal bowel loops identified. A normal appendix is identified. There is no pelvic lymphadenopathy. There is mild bilateral inguinal lymphadenopathy, nonspecific. Incidentally noted is what is likely a subchondral cyst of the superior left acetabulum. IMPRESSION: Right gluteal fluid collection, likely abscess, up to 10.6 cm in greatest dimension. Suspected bilateral gluteal cellulitis. Numerous calcified gluteal injection granulomata bilaterally. Additional minor findings as above. Assessment & Plan (1) Abscess or cellulitis of gluteal region Status: Acute (2) Diabetes mellitus Status: Chronic (3) HIV (human immunodeficiency virus infection) Status: Chronic - Assessment and Plan (Free Text) Assessment: A/P- 51 year old female with h/o HIV, DM II, right gluteal abscess s/p I and D . clinically stable afebrile normal wbc c ount blood cx-neg wound cx- pending plan- advise to continue with current IV abx that were initiated by the primary team namely vanco and zosyn. keep vanco trough <15. length of abx pending clinical response and also pending length of time pigtail drain will stay in place. f/u wound cx results. check VL and CD4. all above d/w pt. Thank you fro allowing me to take part in the care of this patient,
[2016-12-24] MEDS ORDERED: oxyCODONE 10 mg Immediate Release Tab PO PRN (22:00)
[2016-12-24] MEDS: Insulin Detemir 100 Units/ml Inj SC SCH (22:05)
[2016-12-25] MEDS: Sodium Chloride 0.9% 1,000 ML IV SCH (01:35)
[2016-12-25] MEDS: Piperacillin/Tazobact 3.375 GM in Sodium Chloride 0.9% 100 ML IVPB SCH ×4 (04:09→21:39)
[2016-12-25] MEDS: Insulin Lispro (humaLOG) 100 Units/ml Inj SC SCH ×4 (06:54→21:35)
[2016-12-25 07:14] LABS: HEMOGLOBIN 12.7 g/dL (12.0-16.0); MEAN CELL VOLUME 88.5 fl (81.0-99.0); MEAN CORPUSCULAR HEMOGLOBIN 29.2 pg (27.0-31.0); RBC 4.33 Mil/uL (3.80-5.20); RED CELL DISTRIBUTION WIDTH 13.8 % (11.5-14.5)
[2016-12-25] MEDS: Pantoprazole 40 mg EC Tab PO SCH (09:02)
[2016-12-25] MEDS ORDERED: Lidocaine 1% Inj (20ml) ONE (10:48)
--- NOTE | 2016-12-25 11:11 | PCM.SURG1 ---
Surgeon's Initial Post Op Note - Surgeon's Notes Surgeon: Wilber Garay MD Baby Sitter: None Type of Anesthesia: Local Pre-Operative Diagnosis: Abscess Operative Findings: US showed a patent right basillic vein. Post-Operative Diagnosis: Abscess Operation Performed: Single lumen picc placement right basilic vein, 39 cm. Tip in SVC. Specimen/Specimens Removed: None Estimated Blood Loss: EBL {In ML}: 2 Blood Products Given: N/A Drains Used: No Drains Post-Op Condition: Fair Date of Surgery/Procedure: 12/25/16 Time of Surgery/Procedure: 11:10
--- NOTE | 2016-12-25 11:12 | CP.PCM.PN ---
Subjective - Date & Time of Evaluation Date of Evaluation: 12/25/16 Time of Evaluation: 11:09 - Subjective Subjective: Patient is seen and examined by bedside this AM. S/p I&D with pigtail placement. Pt endorses feeling better this morning. He states that the pain medications work really well and she is no pain. Denies chest pain, dyspnea, palpitations, fever, chills, n/v/d/c. Objective - Vital Signs/Intake and Output Vital Signs (last 24 hours): Temp Pulse Resp BP Pulse Ox 98.6 F 63 20 110/70 100 12/25/16 08:39 12/25/16 08:39 12/25/16 08:39 12/25/16 08:39 12/25/16 08:39 - Medications Medications: Current Medications Acetaminophen (Tylenol 325mg Tab) 650 mg PO Q6 PRN PRN Reason: Pain, Mild (1-3) Last Admin: 12/24/16 08:24 Dose: 650 mg Acetaminophen (Tylenol 325mg Tab) 650 mg PO Q6 PRN PRN Reason: Fever >100.4 F Atorvastatin Calcium (Lipitor) 20 mg PO HS [facility] Last Admin: 12/24/16 22:05 Dose: 20 mg Cholecalciferol (Vitamin D) 2,000 iu PO DAILY [facility] Last Admin: 12/25/16 09:01 Dose: 2,000 iu Docusate Sodium (Colace) 100 mg PO BID [facility] Last Admin: 12/25/16 08:59 Dose: 100 mg Duloxetine HCl (Cymbalta) 60 mg PO DAILY [facility] Last Admin: 12/25/16 09:02 Dose: 60 mg Enoxaparin Sodium (Lovenox) 40 mg SC DAILY [facility] PRN Reason: Protocol Escitalopram Oxalate (Lexapro) 20 mg PO DAILY [facility] Last Admin: 12/25/16 09:01 Dose: 20 mg Famotidine (Pepcid) 40 mg PO DAILY [facility] Last Admin: 12/25/16 09:01 Dose: 40 mg Ferrous Sulfate (Feosol) 325 mg PO DAILY [facility] Last Admin: 12/24/16 13:40 Dose: 325 mg Fluconazole (Diflucan) 150 mg PO DAILY [facility] Last Admin: 12/24/16 13:39 Dose: 150 mg Home Med (Cholecalciferol (Vitamin D3) [Vitamin D3]) 2,000 unit PO DAILY [facility] Home Med (Emtricita/Rilpivir/Tenofovir) 1 tab PO [facility] Home Med (Famotidine [Pepcid]) 40 mg PO DAILY [facility] Home Med (Valacyclovir [Valtrex]) 1 gm PO DAILY [facility] Vancomycin HCl 1 gm/ Sodium (Chloride) 250 mls @ 166.667 mls/hr IVPB DAILY [facility] Last Admin: 12/24/16 11:00 Dose: 166.667 mls/hr Sodium Chloride (Sodium Chloride 0.9%) 1,000 mls @ 100 mls/hr IV .Q10H [facility] Last Admin: 12/25/16 01:35 Dose: Not Given Piperacillin Sod/Tazobactam (Sod 3.375 gm/ Sodium Chloride) 100 mls @ 100 mls/ hr IVPB Q6 [facility] Last Admin: 12/25/16 09:03 Dose: 100 mls/hr Insulin Detemir (Levemir) 10 units SC [facility] Last Admin: 12/24/16 22:05 Dose: 10 units Insulin Human Lispro (Humalog) 0 units SC [facility] PRN Reason: Protocol Last Admin: 12/25/16 06:54 Dose: Not Given Ketorolac Tromethamine (Toradol) 30 mg IVP Q6 PRN PRN Reason: Pain, severe (8-10) Metformin HCl (Glucophage) 1,000 mg PO BID [facility] Last Admin: 12/25/16 09:01 Dose: 1,000 mg Ondansetron HCl (Zofran Inj) 4 mg IVP Q6 PRN PRN Reason: Nausea/Vomiting Oxycodone HCl (Oxycodone Immediate Release Tab) 30 mg PO Q6 PRN PRN Reason: Pain, severe (8-10) Stop: 12/26/16 19:58 Last Admin: 12/24/16 22:15 Dose: 30 mg Pantoprazole Sodium (Protonix Ec Tab) 40 mg PO DAILY [facility] Last Admin: 12/25/16 09:02 Dose: 40 mg - Labs Labs: 12/25/16 07:13 12/24/16 04:20 PT 12.7 Seconds (9.8-13.1) 12/23/16 14:15 INR 1.1 (0.9-1.2) 12/23/16 14:15 APTT 27.3 Seconds (25.6-37.1) 12/23/16 14:15 - Constitutional Appears: Well, No Acute Distress - Head Exam Head Exam: ATRAUMATIC, NORMOCEPHALIC - Eye Exam Eye Exam: EOMI, Normal appearance - ENT Exam ENT Exam: Mucous Membranes Moist - Respiratory Exam Respiratory Exam: Clear to Ausculation Bilateral, NORMAL BREATHING PATTERN. absent: Wheezes - Cardiovascular Exam Cardiovascular Exam: REGULAR RHYTHM, +S1, +S2 - GI/Abdominal Exam GI & Abdominal Exam: Soft, Normal Bowel Sounds. absent: Guarding, Tenderness - Extremities Exam Extremities Exam: Full ROM, Normal Inspection. absent: Pedal Edema, Tenderness - Back Exam Back Exam: NORMAL INSPECTION Additional comments: pt has a pigtail with drain in the R buttock. Draining sero-sangnious fluid. Some swelling, no redness noted - Neurological Exam Neurological Exam: Alert, Awake - Psychiatric Exam Psychiatric exam: Normal Affect, Normal Mood - Skin Skin Exam: Dry, Intact, Normal Color, Warm Assessment and Plan - Assessment and Plan (Free Text) Assessment: 51-year-old female with past medical history of HIV, diabetes,Depression, dyslipidemia, chronic pain, with history of buttock silicon implant many years ago and removal with multiple complications and infections presented to the emergency department with recurrent right buttock abscess,associated with pain , headache, and fatigue,for 1 week. The abscess originally was located on the right buttock region, and began spreading. She visited her doctor in [place] yesterday, and states that a CT scan was recommended. Pt has hx of abscess to lateral thigh with I& D and pig tail placement 2 months ago. VS stable, remains afebrile. Pigtail draining sero- sanguineous fluid. CT shows gluteal fluid collection likely abscess, up to 10.6 cm in greatest dimension. Suspected bilateral gluteal cellulites. S/p US guided right gluteal abscess drainage. Placement of a 8.5 fr pigtail drainage catheter. 50cc purulent drainage. Blood culture no growth 24 hrs. (12/24) s/p PICC placement R basilic vein (12/25) 1. Gluteal abscess with cellulitis - s/p US guided drainage with 50cc of purulent drainage. - blood culture no growth 24hrs - wound culture pending; gram stain is PMNs WBC and gram positive bacilli - continue Vanc and Zosyn - monitor drainage - ID consult appreciated 2. HIV - continue pts home medications 3. DM II - diabetic diet - accuchecks - continue humalog, levemir and metformin 4. Dyslipedemia - continue atorvastatin 20mg 5. Depression - continue cymbalta, and Lexapro 6. chronic pain - continue home medications 7. DVT prophylaxis
[2016-12-25] MEDS: Fluconazole 150 MG TAB PO SCH (16:00)
--- NOTE | 2016-12-25 16:38 | CP.PCM.PN ---
Subjective - Date & Time of Evaluation Date of Evaluation: 12/25/16 Time of Evaluation: 16:37 - Subjective Subjective: ID Note- Pt. seen and examined today. denies any fever or chills. drain in place and draining serosanguinous fluid. Objective - Vital Signs/Intake and Output Vital Signs (last 24 hours): Temp Pulse Resp BP Pulse Ox 98.7 F 64 18 129/81 98 12/25/16 16:08 12/25/16 16:08 12/25/16 16:08 12/25/16 16:08 12/25/16 16:08 - Medications Medications: Current Medications Acetaminophen (Tylenol 325mg Tab) 650 mg PO Q6 PRN PRN Reason: Pain, Mild (1-3) Last Admin: 12/24/16 08:24 Dose: 650 mg Acetaminophen (Tylenol 325mg Tab) 650 mg PO Q6 PRN PRN Reason: Fever >100.4 F Atorvastatin Calcium (Lipitor) 20 mg PO [facility] Last Admin: 12/24/16 22:05 Dose: 20 mg Cholecalciferol (Vitamin D) 2,000 iu PO DAILY [facility] Last Admin: 12/25/16 09:01 Dose: 2,000 iu Docusate Sodium (Colace) 100 mg PO BID [facility] Last Admin: 12/25/16 08:59 Dose: 100 mg Duloxetine HCl (Cymbalta) 60 mg PO DAILY [facility] Last Admin: 12/25/16 09:02 Dose: 60 mg Enoxaparin Sodium (Lovenox) 40 mg SC DAILY [facility] PRN Reason: Protocol Escitalopram Oxalate (Lexapro) 20 mg PO DAILY [facility] Last Admin: 12/25/16 09:01 Dose: 20 mg Famotidine (Pepcid) 40 mg PO DAILY [facility] Last Admin: 12/25/16 09:01 Dose: 40 mg Ferrous Sulfate (Feosol) 325 mg PO DAILY [facility] Last Admin: 12/24/16 13:40 Dose: 325 mg Fluconazole (Diflucan) 150 mg PO DAILY [facility] Last Admin: 12/24/16 13:39 Dose: 150 mg Home Med (Cholecalciferol (Vitamin D3) [Vitamin D3]) 2,000 unit PO DAILY [facility] Home Med (Emtricita/Rilpivir/Tenofovir) 1 tab PO [facility] Home Med (Famotidine [Pepcid]) 40 mg PO DAILY [facility] Home Med (Valacyclovir [Valtrex]) 1 gm PO DAILY [facility] Vancomycin HCl 1 gm/ Sodium (Chloride) 250 mls @ 166.667 mls/hr IVPB DAILY [facility] Last Admin: 12/24/16 11:00 Dose: 166.667 mls/hr Sodium Chloride (Sodium Chloride 0.9%) 1,000 mls @ 100 mls/hr IV .Q10H [facility] Last Admin: 12/25/16 01:35 Dose: Not Given Piperacillin Sod/Tazobactam (Sod 3.375 gm/ Sodium Chloride) 100 mls @ 100 mls/ hr IVPB Q6 [facility] Last Admin: 12/25/16 09:03 Dose: 100 mls/hr Insulin Detemir (Levemir) 10 units SC [facility] Last Admin: 12/24/16 22:05 Dose: 10 units Insulin Human Lispro (Humalog) 0 units SC [facility] PRN Reason: Protocol Last Admin: 12/25/16 06:54 Dose: Not Given Ketorolac Tromethamine (Toradol) 30 mg IVP Q6 PRN PRN Reason: Pain, severe (8-10) Metformin HCl (Glucophage) 1,000 mg PO BID [facility] Last Admin: 12/25/16 09:01 Dose: 1,000 mg Ondansetron HCl (Zofran Inj) 4 mg IVP Q6 PRN PRN Reason: Nausea/Vomiting Oxycodone HCl (Oxycodone Immediate Release Tab) 30 mg PO Q6 PRN PRN Reason: Pain, severe (8-10) Stop: 12/26/16 19:58 Last Admin: 12/24/16 22:15 Dose: 30 mg Pantoprazole Sodium (Protonix Ec Tab) 40 mg PO DAILY [facility] Last Admin: 12/25/16 09:02 Dose: 40 mg - Labs Labs: - Additional Findings Additional findings: Constitutional Appears: Non-toxic, No Acute Distress - Head Exam Head Exam: ATRAUMATIC - Eye Exam Eye Exam: EOMI, PERRL - ENT Exam ENT Exam: Normal Oropharynx - Neck Exam Neck exam: Positive for: Full Rom - Respiratory Exam Respiratory Exam: Clear to Auscultation Bilateral, NORMAL BREATHING PATTERN - Cardiovascular Exam Cardiovascular Exam: RRR, +S1, +S2 - GI/Abdominal Exam GI & Abdominal Exam: Normal Bowel Sounds, Soft Additional comments: NT, ND - Extremities Exam Extremities exam: Positive for: normal inspection - Neurological Exam Neurological exam: Alert, Oriented x3 - Skin Additional comments: left gluteal region with pig tail catheter in place draining thick fluid, no surrounding erythema, somewhat warm to touch old surgical scars under both gluteal regions, dry/intact Laboratory Results - last 72 hr 12/23/16 12/23/16 12/23/16 13:09 13:09 13:21 WBC 8.6 RBC 4.40 Hgb 12.7 Hct 39.8 MCV 90.4 MCH 28.7 MCHC 31.8 L RDW 14.7 H Plt Count 281 MPV 9.5 Neut % (Auto) 58.9 Lymph % (Auto) 33.8 [place] % (Auto) 6.3 Eos % (Auto) 0.5 Baso % (Auto) 0.5 Neut # 5.1 Lymph # 2.9 [place] # 0.5 Eos # 0.0 Baso # 0.0 PT 12.5 INR 1.1 APTT 28.7 Sodium Potassium Chloride Carbon Dioxide Anion Gap BUN Creatinine Est GFR ( Amer) Est GFR (Non-Af Amer) POC Glucose (mg/dL) 138 H Random Glucose Calcium Total Bilirubin AST ALT Alkaline Phosphatase Total Protein Albumin Globulin Albumin/Globulin Ratio 12/23/16 12/23/16 12/23/16 14:15 14:15 14:15 WBC 8.7 RBC 4.17 Hgb 12.0 Hct 37.5 MCV 90.0 MCH 28.8 MCHC 32.0 L RDW 14.4 Plt Count 257 MPV 8.6 Neut % (Auto) 59.5 Lymph % (Auto) 33.6 [place] % (Auto) 5.8 Eos % (Auto) 0.8 Baso % (Auto) 0.3 Neut # 5.2 Lymph # 2.9 [place] # 0.5 Eos # 0.1 Baso # 0.0 PT 12.7 INR 1.1 APTT 27.3 Sodium 137 Potassium 3.8 Chloride 106 Carbon Dioxide 23 Anion Gap 12 BUN 13 Creatinine 0.5 L Est GFR ( Amer) > 60 Est GFR (Non-Af Amer) > 60 POC Glucose (mg/dL) Random Glucose 134 H Calcium 8.8 Total Bilirubin 0.3 AST 38 H ALT 44 Alkaline Phosphatase 71 Total Protein 6.9 Albumin 3.6 Globulin 3.3 Albumin/Globulin Ratio 1.1 12/23/16 12/24/16 12/24/16 21:20 04:20 04:20 WBC 6.8 RBC 4.11 Hgb 11.9 L Hct 36.6 MCV 89.1 MCH 29.0 MCHC 32.5 L RDW 14.2 Plt Count 262 MPV 8.3 Neut % (Auto) 54.3 Lymph % (Auto) 37.9 [place] % (Auto) 6.4 Eos % (Auto) 1.0 Baso % (Auto) 0.4 Neut # 3.7 Lymph # 2.6 [place] # 0.4 Eos # 0.1 Baso # 0.0 PT INR APTT Sodium 141 Potassium 4.0 Chloride 109 H Carbon Dioxide 26 Anion Gap 10 BUN 8 Creatinine 0.5 L Est GFR ( Amer) > 60 Est GFR (Non-Af Amer) > 60 POC Glucose (mg/dL) 239 H Random Glucose 169 H Calcium 8.8 Total Bilirubin AST ALT Alkaline Phosphatase Total Protein Albumin Globulin Albumin/Globulin Ratio 12/24/16 12/24/16 12/24/16 05:36 10:49 15:47 WBC RBC Hgb Hct MCV MCH MCHC RDW Plt Count MPV Neut % (Auto) Lymph % (Auto) [place] % (Auto) Eos % (Auto) Baso % (Auto) Neut # Lymph # [place] # Eos # Baso # PT INR APTT Sodium Potassium Chloride Carbon Dioxide Anion Gap BUN Creatinine Est GFR ( Amer) Est GFR (Non-Af Amer) POC Glucose (mg/dL) 168 H 158 H 232 H Random Glucose Calcium Total Bilirubin AST ALT Alkaline Phosphatase Total Protein Albumin Globulin Albumin/Globulin Ratio 12/24/16 12/25/16 12/25/16 21:10 05:47 07:13 WBC 6.0 RBC 4.33 Hgb 12.7 Hct 38.3 MCV 88.5 MCH 29.2 MCHC 33.0 RDW 13.8 Plt Count 295 MPV Neut % (Auto) Lymph % (Auto) [place] % (Auto) Eos % (Auto) Baso % (Auto) Neut # Lymph # [place] # Eos # Baso # PT INR APTT Sodium Potassium Chloride Carbon Dioxide Anion Gap BUN Creatinine Est GFR ( Amer) Est GFR (Non-Af Amer) POC Glucose (mg/dL) 224 H 149 H Random Glucose Calcium Total Bilirubin AST ALT Alkaline Phosphatase Total Protein Albumin Globulin Albumin/Globulin Ratio 12/25/16 12/25/16 12:07 15:36 WBC RBC Hgb Hct MCV MCH MCHC RDW Plt Count MPV Neut % (Auto) Lymph % (Auto) [place] % (Auto) Eos % (Auto) Baso % (Auto) Neut # Lymph # [place] # Eos # Baso # PT INR APTT Sodium Potassium Chloride Carbon Dioxide Anion Gap BUN Creatinine Est GFR ( Amer) Est GFR (Non-Af Amer) POC Glucose (mg/dL) 251 H 155 H Random Glucose Calcium Total Bilirubin AST ALT Alkaline Phosphatase Total Protein Albumin Globulin Albumin/Globulin Ratio Microbiology 12/23/16 13:00 Blood-Venous Blood Culture - Preliminary NO GROWTH AFTER 48 HOURS 12/23/16 12:40 Blood-Venous Blood Culture - Preliminary NO GROWTH AFTER 48 HOURS 12/24/16 13:53 Abscess - Buttock-Right Gram Stain - Final Assessment and Plan (1) Abscess or cellulitis of gluteal region Status: Acute (2) Diabetes mellitus Status: Chronic (3) HIV (human immunodeficiency virus infection) Status: Chronic - Assessment and Plan (Free Text) Assessment: A/P- 51 year old female with h/o HIV, DM II, right gluteal abscess s/p I and D . clinically stable afebrile normal wbc count blood cx-neg x 2 wound cx- rare gram pos bacilli on gram stain, cx pending plan- advise to continue with current IV abx that were initiated by the primary team namely vanco and zosyn. keep vanco trough <15. day #3 pending wound cx result. length of abx pending clinical response and also pending length of time pigtail drain will stay in place. has picc line . can be d/c home on IV abx pending final wound cx result. all above d/w patient and and they agree with above plan of care.
[2016-12-25] MEDS: oxyCODONE 5 mg Immediate Release Tab PO PRN (18:28)
[2016-12-25] MEDS ORDERED: oxyCODONE 5 mg Immediate Release Tab PO PRN (18:30)
[2016-12-25] MEDS ORDERED: Oxycodone/Acetaminophen 5/325 mg Tab PO PRN (21:12)
[2016-12-25] MEDS: Insulin Detemir 100 Units/ml Inj SC SCH (21:40)
[2016-12-26] MEDS ORDERED: oxyCODONE 10 mg Immediate Release Tab PO PRN (00:15)
[2016-12-26] MEDS: Piperacillin/Tazobact 3.375 GM in Sodium Chloride 0.9% 100 ML IVPB SCH ×2 (04:11→09:05)
[2016-12-26] MEDS: Insulin Lispro (humaLOG) 100 Units/ml Inj SC SCH ×2 (08:07→12:24)
[2016-12-26] MEDS: Fluconazole 150 MG TAB PO SCH (09:05)
[2016-12-26] MEDS: Pantoprazole 40 mg EC Tab PO SCH (09:06)
[2016-12-26] MEDS: Sodium Chloride 0.9% 1,000 ML IV SCH (09:10)
--- NOTE | 2016-12-26 15:44 | CP.PCM.DIS ---
Provider - Provider Date of Admission: 12/23/16 17:59 Attending physician: Narda Grant MD Consults: ID: Dr Samaniego Time Spent in preparation of Discharge (in minutes): 40 Diagnosis - Discharge Diagnosis (1) Abscess or cellulitis of gluteal region Status: Acute (2) HIV (human immunodeficiency virus infection) Status: Chronic (3) Diabetes mellitus Status: Chronic Hospital Course - Lab Results Lab Results: Micro Results 12/24/16 13:53 Abscess - Buttock-Right Gram Stain - Final 12/24/16 13:53 Abscess - Buttock-Right Wound Culture - Final Corynebacterium Species Most Recent Lab Values WBC 6.0 K/uL (4.8-10.8) 12/25/16 07:13 RBC 4.33 Mil/uL (3.80-5.20) 12/25/16 07:13 Hgb 12.7 g/dL (12.0-16.0) 12/25/16 07:13 Hct 38.3 % (34.0-47.0) 12/25/16 07:13 MCV 88.5 fl (81.0-99.0) 12/25/16 07:13 MCH 29.2 pg (27.0-31.0) 12/25/16 07:13 MCHC 33.0 g/dL (33.0-37.0) 12/25/16 07:13 RDW 13.8 % (11.5-14.5) 12/25/16 07:13 Plt Count 295 K/uL (130-400) 12/25/16 07:13 MPV 8.3 fl (7.2-11.7) 12/24/16 04:20 Neut % (Auto) 54.3 % (50.0-75.0) 12/24/16 04:20 Lymph % (Auto) 37.9 % (20.0-40.0) 12/24/16 04:20 [place] % (Auto) 6.4 % (0.0-10.0) 12/24/16 04:20 Eos % (Auto) 1.0 % (0.0-4.0) 12/24/16 04:20 Baso % (Auto) 0.4 % (0.0-2.0) 12/24/16 04:20 Neut # 3.7 K/uL (1.8-7.0) 12/24/16 04:20 Lymph # 2.6 K/uL (1.0-4.3) 12/24/16 04:20 [place] # 0.4 K/uL (0.0-0.8) 12/24/16 04:20 Eos # 0.1 K/uL (0.0-0.7) 12/24/16 04:20 Baso # 0.0 K/uL (0.0-0.2) 12/24/16 04:20 PT 12.7 Seconds (9.8-13.1) 12/23/16 14:15 INR 1.1 (0.9-1.2) 12/23/16 14:15 APTT 27.3 Seconds (25.6-37.1) 12/23/16 14:15 Sodium 141 mmol/l (132-148) 12/24/16 04:20 Potassium 4.0 MMOL/L (3.6-5.0) 12/24/16 04:20 Chloride 109 mmol/L (98-107) H 12/24/16 04:20 Carbon Dioxide 26 mmol/L (22-30) 12/24/16 04:20 Anion Gap 10 (10-20) 12/24/16 04:20 BUN 8 mg/dl (7-17) 12/24/16 04:20 Creatinine 0.5 mg/dL (0.7-1.2) L 12/24/16 04:20 Est GFR ( Amer) > 60 12/24/16 04:20 Est GFR (Non-Af Amer) > 60 12/24/16 04:20 POC Glucose (mg/dL) 243 mg/dL (65-110) H 12/26/16 11:23 Random Glucose 169 mg/dL (65-105) H 12/24/16 04:20 Calcium 8.8 mg/dL (8.4-10.2) 12/24/16 04:20 Total Bilirubin 0.3 mg/dl (0.2-1.3) 12/23/16 14:15 AST 38 U/L (14-36) H 12/23/16 14:15 ALT 44 U/L (9-52) 12/23/16 14:15 Alkaline Phosphatase 71 U/L (38-126) 12/23/16 14:15 Total Protein 6.9 G/DL (6.3-8.2) 12/23/16 14:15 Albumin 3.6 g/dL (3.5-5.0) 12/23/16 14:15 Globulin 3.3 gm/dL (2.2-3.9) 12/23/16 14:15 Albumin/Globulin Ratio 1.1 (1.0-2.1) 12/23/16 14:15 Vancomycin Trough < 5.0 ug/mL (5.0-10.0) L 12/26/16 08:40 - Hospital Course Hospital Course: 51-year-old female with past medical history of HIV, diabetes,Depression, dyslipidemia, chronic pain, with history of buttock silicone implant many years ago and removal with multiple complications and infections presented to the emergency department with recurrent right buttock abscess,associated with pain , headache, and fatigue,for 1 week. The abscess originally was located on the right buttock region, and began spreading. She visited her doctor in [place] yesterday, and states that a CT scan was recommended. Pt has hx of abscess to lateral thigh with I& D and pig tail placement 2 months ago. VS stable, remains afebrile. Pigtail draining sero- sanguineous fluid. CT shows gluteal fluid collection likely abscess, up to 10.6 cm in greatest dimension. Suspected bilateral gluteal cellulites. S/p US guided right gluteal abscess drainage. Placement of a 8.5 fr pigtail drainage catheter. 50cc purulent drainage. Blood culture no growth 24 hrs. (12/24) s/p PICC placement R basilic vein (12/25) 1. Gluteal abscess with cellulitis - s/p US guided drainage with 50cc of purulent drainage and placement of pigtail catheter attached to Nilesh Thomas bulb - blood culture no growth 24hrs - wound culture : Corynebacterium - Received IV Vanco and Zosyn - ID consulted - Dr Samaniego- rec to d/c pt on IV Vanco and Ceftriaxone daily x 10 days then pt should be placed on PO antibiotics - Arrangement made by Case management for pt to start Home IV antibiotic infusion tomorrow - Wednesday. - Weekly Vanco trough and BMP- fax result to pt's PMD and Plastic Surgeon Dr Baljinder Daniels - Daily Wound Care ( VNS) Pt will go home with Pigtail catheter and ff up with Dr Jeremiah purvis next wk 2. HIV - continue pts home medications, antiretrovirals 3. DM II - diabetic diet - accuchecks - continue humalog, levemir and metformin 4. Dyslipedemia - continue atorvastatin 20mg 5. Depression - continue cymbalta, and Lexapro 6. chronic pain - continue home medications- pt on Oxycodone ( she requested for refill Rx for #15 tabs given) 7. DVT prophylaxis - Lovenox Discharge Exam - Head Exam Head Exam: ATRAUMATIC, NORMAL INSPECTION, NORMOCEPHALIC - Eye Exam Eye Exam: EOMI, Normal appearance, PERRL Pupil Exam: NORMAL ACCOMODATION - ENT Exam ENT Exam: Mucous Membranes Moist, Normal External Ear Exam - Neck Exam Neck exam: Full Rom - Respiratory Exam Respiratory Exam: NORMAL BREATHING PATTERN. absent: Respiratory Distress - Cardiovascular Exam Cardiovascular Exam: REGULAR RHYTHM, +S1, +S2 - GI/Abdominal Exam GI & Abdominal Exam: Normal Bowel Sounds, Soft. absent: Tenderness - Extremities Exam Extremities exam: full ROM, normal capillary refill, pedal pulses present Additional comments: no calf tenderness Gluteal abscess, right - Back Exam Back exam: FULL ROM. absent: CVA tenderness (L), CVA tenderness (R), vertebral tenderness - Neurological Exam Neurological exam: Alert, CN II-XII Intact, Oriented x3, Reflexes Normal - Psychiatric Exam Psychiatric exam: Normal Affect, Normal Mood - Skin Skin Exam: Normal Color, Warm Discharge Plan - Discharge Medications Prescriptions: cefTRIAXone 1 gm [Rocephin 1 gram IVPB] 1 gm IVPB DAILY 10 Days oxyCODONE [oxyCODONE Immediate Release Tab] 30 mg PO Q8 PRN #15 PRN Reason: Pain, Severe (8-10) Vancomycin/0.9 % Sod Chloride [Vanco 1 Gram/250 ml-0.9% NaCl] 1 gm IV DAILY 10 Days - Follow Up Plan Condition: IMPROVED Disposition: HOME/ ROUTINE Instructions: Cellulitis (DC), Abscess (GEN) Additional Instructions: Medical clearance given for discharge home. prescriptions for antibiotics faxed to patient's pharmacy by Hospitalist. To follow up with Dr. Baljinder Daniels. Verbalized understanding for PHIL Drain emptying and performed return demonstration with RN. Home IV abx - vanco and Ceftriaxone daily x 10 days then pt will need PO antibiotics Daily wound Care- VNS to go to pt's home ff up with Dr Jeremiah purvis ff up with PMD next wk Weekly BMP and Vanco trough Referrals: Baljinder Daniels [Medical Doctor] -
[2016-12-26] MEDS ORDERED: Piperacill/Tazo 3.375gm in Dex 3.375 GM/50 ML BAG IVPB SCH (16:00)
[2016-12-26 16:44] VITALS: BP 123/74; PULSE 73; RESP 17; TEMP 98.4; O2SAT 98
--- NOTE | 2016-12-28 11:02 | VASCULAR ---
PROCEDURE: Date of procedure: 12/25/2016 Procedure: 1. Placement of a right arm PICC with ultrasound and fluoroscopic guidance, CPT 18597 2. PICC tip confirmation with spot radiograph and is in the superior vena cava Medications: 3cc 1 percent lidocaine Total Fluoro time: 2 seconds Radiation: 0.89 MGy EBL: 2 cc HISTORY: Infection requiring long-term IV antibiotics TECHNIQUE: Following informed consent and procedure time-out, the patient was placed supine on the interventional table and the right arm prepped and draped in the usual sterile fashion. Ultrasound showed a patent and compressible right basilic vein. After the skin was anesthetized with lidocaine, the basilic vein was accessed with micro micropuncture technique using ultrasound guidance. A guidewire was then advanced under fluoroscopic guidance into the superior vena cava. An image documenting ultrasound guidance for vascular access was permanently saved. The length of the single-lumen 4 [place]ic PICC was trimmed to 37 centimeters and advanced through a peel-away sheath. The PICC was position with tip of PICC confirm a spot radiograph the superior vena cava. The PICC was secured to the patient's skin. The PICC was flushed. A biopatch and sterile dressing was applied. IMPRESSION: Placement of a single-lumen 4 Green[place]ic PICC trimmed to 39 centimeters via right basilic vein. The tip of the PICC is confirmed with spot radiograph and is in the superior vena cava.
--- NOTE | 2016-12-28 11:15 | US ---
PROCEDURE: Date of procedure: 12/24/2016 Procedure: 1. Right gluteal abscess drainage with ultrasound guidance, CPT 94117 Medications: The patient received IV sedation administered by anesthesiologist HISTORY: Right gluteal abscess TECHNIQUE: Following informed consent procedure time-out, limited ultrasound performed of the patient's right buttock showed a large complex collection. After the patient's right gluteal region was prepped and draped in the usual sterile fashion, the skin was anesthetized with 1 % lidocaine. A 5 [place] Yueh catheter was advanced under ultrasound guidance into the collection. On return of purulent drainage, an 035 guidewire was advanced through the Yueh catheter. An 10 [place] drainage catheter was then advanced over the wire and formed within the abscess. 20 cubic centimeters of purulent drainage from wound was sent for culture and sensitivity. The catheter was secured the patient's skin. A dressing was applied. IMPRESSION: Ultrasound-guided right gluteal abscess drainage with placement of a [place] drainage catheter with abscess. The fluid specimen was sent for culture sensitivity.
== END 2016-12-26 17:21 | disposition home health service (06) | DRG 603 ==
LOC: H.ER 11:42 → H.ERHOLD 17:59 → H.MEDSURG1 20:13
PROVIDERS: ADMIT Hospitalist; ATTEND Hospitalist
PROC: 0H98X0Z Drainage of Buttock Skin with Drainage Device, External Approach (ICD-10-PCS; principal; 2016-12-24 14:00)
PROC: 02HV33Z Insertion of Infusion Device into Superior Vena Cava, Percutaneous Approach (ICD-10-PCS; 2016-12-25)
PROC: B518ZZA Fluoroscopy of Superior Vena Cava, Guidance (ICD-10-PCS; 2016-12-25)
PROC: 3E04329 Introduction of Other Anti-infective into Central Vein, Percutaneous Approach (ICD-10-PCS; 2016-12-25)
DX: L02.31 Cutaneous abscess of buttock (principal); F32.9 Major depressive disorder, single episode, unspecified; L03.317 Cellulitis of buttock; E11.9 Type 2 diabetes mellitus without complications; G89.29 Other chronic pain; E78.5 Hyperlipidemia, unspecified; Z21 Asymptomatic human immunodeficiency virus [HIV] infection status; Z79.4 Long term (current) use of insulin; F17.210 Nicotine dependence, cigarettes, uncomplicated